=== PATIENT | female | born 1985 | race Caucasian/White ===

== ENCOUNTER 2017-05-24 21:36 | Emergency (ER) | payer OTHER ==
[~2017-05-24] VITALS: Ht 167.6 cm; Wt 70.0 kg
[2017-05-24 21:47] VITALS: BP 103/64; PULSE 95; RESP 18; TEMP 97.9; O2SAT 96
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
[2017-05-24 22:42] LABS: AUTOMATED NEUTROPHIL # 5.2 TH/MM3 (1.8-7.7); BASOPHIL % 0.5 % (0.0-2.0); EOSINOPHIL % 0.4 % (0.0-4.0); HEMATOCRIT 32.3 % (35.0-46.0); HEMO FLAGS DIFF FINAL; LYMPH % 30.7 % (9.0-44.0); LYMPHOCYTE # 2.6 TH/MM3 (1.0-4.8); MEAN CELL VOLUME 77.5 FL (80.0-100.0); MEAN CORPUSCULAR HEMOGLOBIN 25.2 PG (27.0-34.0); MEAN CORPUSCULAR HGB CONC 32.5 % (32.0-36.0); MONO % 6.7 % (0.0-8.0); NEUT % 61.7 % (16.0-70.0); PLATELET COUNT 335 TH/MM3 (150-450); RED BLOOD COUNT 4.16 MIL/MM3 (4.00-5.30); RED CELL DISTRIBUTION WIDTH 19.2 % (11.6-17.2); WHITE BLOOD COUNT 8.5 TH/MM3 (4.0-11.0)
[2017-05-24 22:45] VITALS: BP 114/88; PULSE 97; RESP 18; TEMP 97.7; O2SAT 99
[2017-05-24 22:58] LABS: ANION GAP 9 MEQ/L (5-15); BACTERIA, URINE RARE /hpf; BLOOD, URINE NEG (NEG); GLUCOSE,URINE NEG (NEG); KETONE, URINE NEG (NEG); NITRITE,URINE NEG (NEG); SQUAMOUS EPITHELIAL CELL URINE <1 /hpf (0-5); URINE COLOR LIGHT-YELLOW (YELLW/STRAW)
[2017-05-24 23:02] LABS: COMMENT (UR) CATH-CULTURE IND; CULTURE IF INDICATED CATH CULTURE IND
[2017-05-24 23:06] LABS: AMPHETAMINE, URINE NEG (NEG); BARBITURATES, URINE NEG (NEG); COCAINE, URINE NEG (NEG)
[2017-05-24 23:11] LABS: ALKALINE PHOSPHATASE 100 U/L (45-117); ALT (GPT) 31 U/L (10-53); AST (GOT) 30 U/L (15-37); BICARBONATE 24.1 MEQ/L (21.0-32.0); BLOOD UREA NITROGEN 5 MG/DL (7-18); CHLORIDE 105 MEQ/L (98-107); GLOMERULAR FILTRATION RATE 80 ML/MIN (>89); POTASSIUM 3.3 MEQ/L (3.5-5.1); SODIUM (NA) 138 MEQ/L (136-145); TOTAL BILIRUBIN ADULT 0.2 MG/DL (0.2-1.0)
[2017-05-24 23:21] LABS: ACETAMINOPHEN LESS THAN 2.0 MCG/ML (10.0-30.0)
[2017-05-25] MEDS ORDERED: FLUMAZENIL 0.5 MG/5 ML VIAL IV PUSH PRN (00:15)
[2017-05-25] MEDS ORDERED: LORazepam 2 MG TAB PO PRN (00:15)
[2017-05-25] MEDS ORDERED: LORazepam 2 MG/ML VIAL IV PUSH PRN ×4 (00:15)
[2017-05-25] MEDS ORDERED: LORazepam 1 MG TAB PO PRN (00:15)
[2017-05-25 02:00] VITALS: BP 96/52; PULSE 82; RESP 18; TEMP 98.8; O2SAT 98
[2017-05-25 06:12] VITALS: BP 88/53; PULSE 87; RESP 18; TEMP 98.7; O2SAT 98
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
[2017-05-25 12:17] VITALS: BP 88/53
== END 2017-05-25 13:15 | disposition home or self-care (01) ==
LOC: NEPD 21:36 → NEPJ 05-25 13:15
DX: F10.14 Alcohol abuse with alcohol-induced mood disorder (principal); F43.25 Adjustment disorder with mixed disturbance of emotions and conduct; R82.71 Bacteriuria; Y90.8 Blood alcohol level of 240 mg/100 ml or more
CPT/HCPCS: 80053; 80307; 81001; 85025; 86403; 87086; 99284